=== PATIENT | male | born 1935 | race Two or more races ===

== ENCOUNTER 2018-04-24 14:14 | Inpatient (IN) | payer MEDICARE, OTHER ==
[~2018-04-24] VITALS: Ht 172.7 cm; Wt 74.8 kg
[2018-04-24] MEDS ORDERED: Z GUARD REMEDY PASTE 57 GM TUBE TOP PRN (15:45)
[2018-04-24] MEDS ORDERED: MAGNESIUM HYDROXIDE 30 ML LIQUID UDC PO PRN (15:45)
[2018-04-24] MEDS ORDERED: ACETAMINOPHEN 325 MG TABLET PO PRN (15:45)
[2018-04-24] MEDS ORDERED: ONDANSETRON 4 MG/2 ML VIAL IV PRN (15:45)
[2018-04-24] MEDS ORDERED: OXYC-128 PO (15:54)
[2018-04-24] MEDS ORDERED: NUT.237L36 PO (15:54)
[2018-04-24] MEDS ORDERED: POTA20TA83 PO (16:36)
[2018-04-24] MEDS ORDERED: TAMS0.4C34 PO (16:36)
[2018-04-24] MEDS ORDERED: ALOG25TA2 PO (16:36)
[2018-04-24] MEDS ORDERED: CAND1TAB16 PO (16:36)
[2018-04-24] MEDS ORDERED: ATOR10TA PO (16:36)
[2018-04-24] MEDS ORDERED: ASPI81TA31 PO (16:36)
[2018-04-24] MEDS ORDERED: ESOM40CA PO (16:36)
[2018-04-24] MEDS ORDERED: METF-440 PO (16:36)
[2018-04-24] MEDS ORDERED: RIVA10TA PO (16:36)
[2018-04-24] MEDS ORDERED: VALS80TA2 PO (16:36)
[2018-04-24] MEDS ORDERED: SILO8CAP2 PO (16:36)
[2018-04-24] MEDS ORDERED: PRED20TA PO (16:36)
[2018-04-24] MEDS ORDERED: DILT240C53 PO (16:36)
[2018-04-24] MEDS ORDERED: DEXTROSE 50% 50 ML DISP.SYRIN IV PRN (16:45)
[2018-04-24] MEDS ORDERED: OXYCODONE/APAP 5-325 MG TABLET PO PRN (18:30)
[2018-04-24 20:27] VITALS: BP 144/60
[2018-04-24] MEDS: ATORVASTATIN 10 MG TABLET PO SCH (20:37)
[2018-04-24] MEDS: TAMSULOSIN HCL 0.4 MG CAP.SR.24H PO SCH (20:37)
[2018-04-24] MEDS: DOCUSATE SODIUM 100 MG CAPSULE PO SCH (20:37)
[2018-04-24] MEDS: BLOOD SUGAR DIAGNOSTIC 1 EACH STRIP VI SCH (20:38)
[2018-04-24] MEDS: INSULIN REGULAR, HUMAN 300 UNIT/3 ML VIAL SQ PRN (20:41)
[2018-04-24] MEDS: DILTIAZEM HCL CD 240 MG CAP.SR.24H PO SCH (21:50)
[2018-04-25 06:05] VITALS: BP 135/62
[2018-04-25] MEDS: PANTOPRAZOLE SODIUM 40 MG TABLET.DR PO SCH (06:29)
[2018-04-25] MEDS: BLOOD SUGAR DIAGNOSTIC 1 EACH STRIP VI SCH ×4 (06:31→21:06)
[2018-04-25] MEDS ORDERED: PANTOPRAZOLE SODIUM 40 MG TABLET.DR PO SCH (07:00)
[2018-04-25 07:18] LABS: CARBON DIOXIDE 27 mmol/L (21-32); CHLORIDE 105 mmol/L (98-107); CHOLESTEROL 95 mg/dL (<200); CREATININE 1.1 mg/dL (0.6-1.3); GLUCOSE 173 mg/dL (74-106); HDL CHOLESTEROL 46 mg/dL (40-60); MAGNESIUM 2.1 mg/dL (1.8-2.4); PHOSPHOROUS 2.9 mg/dL (2.5-4.9); POTASSIUM 4.4 mmol/L (3.5-5.1); TRIGLYCERIDES 51 MG/DL (30-150); UREA NITROGEN, BLOOD 44 mg/dL (7-18)
[2018-04-25 07:27] LABS: BASOPHILS % (AUTO) 0.2 % (0.0-2.0); HEMATOCRIT 28.6 % (36.7-47.1); HEMOGLOBIN 9.9 g/dL (12.5-16.3); LYMPHOCYTES # (AUTO) 0.7 K/uL (20.0-40.0); LYMPHOCYTES % (AUTO) 4.7 % (20.5-51.5); MEAN CORPUSCULAR HGB CONC 35 g/dL (32.5-36.3); MEAN CORPUSCULAR VOLUME 98.4 fL (73.0-96.2); MONOCYTES # (AUTO) 1.4 K/uL (2.0-10.0); MONOCYTES % (AUTO) 9.9 % (0.0-11.0); NEUTROPHILS # (AUTO) 11.9 K/uL (1.8-8.9); NEUTROPHILS % (AUTO) 85.2 % (38.5-71.5); PLATELET COUNT (AUTO) 186 K/uL (152-348); RED BLOOD CELL COUNT(AUTO) 2.91 MIL/uL (4.06-5.63)
[2018-04-25 08:00] VITALS: BP 137/71
[2018-04-25] MEDS: METFORMIN HCL 500 MG TABLET PO SCH ×2 (08:38→19:04)
[2018-04-25] MEDS: ASPIRIN 81 MG TAB.CHEW PO SCH (08:38)
[2018-04-25] MEDS: GLUCERNA SHAKE VANILLA 237 ML CAN PO SCH ×2 (08:38→17:23)
[2018-04-25] MEDS: predniSONE 20 MG TABLET PO SCH (08:38)
[2018-04-25] MEDS: DILTIAZEM HCL CD 240 MG CAP.SR.24H PO SCH ×2 (08:39→21:00)
[2018-04-25] MEDS: HYDROCODONE/APAP 5-325MG TABLET PO PRN (08:49)
[2018-04-25] MEDS: INSULIN REGULAR, HUMAN 300 UNIT/3 ML VIAL SQ PRN ×3 (08:59→21:07)
[2018-04-25] MEDS ORDERED: Medication Not On Formulary EA (Silodosin (Rapaflo) 8 MG) PO SCH (09:00)
[2018-04-25] MEDS ORDERED: Medication Not On Formulary EA (Alogliptin Benzoate (Alogliptin) 25 MG) PO SCH (09:00)
[2018-04-25] MEDS ORDERED: RIVAROXABAN 10 MG TABLET PO SCH (09:00)
[2018-04-25 09:42] LABS: BAND % (MANUAL) 2 % (0-10); LYMPHOCYTES % (MANUAL) 6 % (20-40); MONOCYTES % (MANUAL) 12 % (2-10); NEUTROPHILS % (MANUAL) 80 % (42-75)
[2018-04-25] MEDS ORDERED: ALBUTEROL SULFATE 2.5 MG/ 0.5 ML NEBU NEB PRN (10:30)
[2018-04-25] MEDS: ALOGLIPTIN 25 MG PO SCH (14:47)
[2018-04-25] MEDS: HYDROCHLOROTHIAZIDE PO SCH ×2 (14:47→21:10)
[2018-04-25] MEDS: CANDESARTAN PO SCH ×2 (14:47→21:10)
[2018-04-25 16:00] VITALS: BP 128/50
[2018-04-25] MEDS ORDERED: Medication Not On Formulary EA (Candesartan/Hydrochlorothiazid (Candesartan-Hctz 32-12.5 PO SCH (17:00)
[2018-04-25] MEDS: RIVAROXABAN 10 MG TABLET PO SCH (19:08)
[2018-04-25 19:30] VITALS: BP 134/46
[2018-04-25] MEDS: DOCUSATE SODIUM 100 MG CAPSULE PO SCH (21:06)
[2018-04-25] MEDS: TAMSULOSIN HCL 0.4 MG CAP.SR.24H PO SCH (21:08)
[2018-04-25] MEDS: ATORVASTATIN 10 MG TABLET PO SCH (21:09)
[2018-04-25] MEDS: POTASSIUM CHLORIDE 20 MEQ TAB.PRT.SR PO SCH (21:09)
[2018-04-26 04:30] VITALS: BP 148/53
[2018-04-26] MEDS: BLOOD SUGAR DIAGNOSTIC 1 EACH STRIP VI SCH ×4 (06:41→21:04)
[2018-04-26] MEDS: PANTOPRAZOLE SODIUM 40 MG TABLET.DR PO SCH (06:41)
[2018-04-26 07:19] LABS: BASOPHILS % (AUTO) 0.1 % (0.0-2.0); EOSINOPHILS # (AUTO) 0.1 K/uL (0.0-0.7); EOSINOPHILS % (AUTO) 0.5 % (0.0-7.0); HEMATOCRIT 28.7 % (36.7-47.1); HEMOGLOBIN 9.9 g/dL (12.5-16.3); LYMPHOCYTES # (AUTO) 1.3 K/uL (20.0-40.0); LYMPHOCYTES % (AUTO) 8.7 % (20.5-51.5); MEAN CORPUSCULAR HEMOGLOBIN 33.1 uug (23.8-33.4); MEAN CORPUSCULAR HGB CONC 35 g/dL (32.5-36.3); MONOCYTES # (AUTO) 1.6 K/uL (2.0-10.0); MONOCYTES % (AUTO) 10.9 % (0.0-11.0); NEUTROPHILS # (AUTO) 11.8 K/uL (1.8-8.9); NEUTROPHILS % (AUTO) 79.8 % (38.5-71.5); PLATELET COUNT (AUTO) 219 K/uL (152-348); RED BLOOD CELL COUNT(AUTO) 2.99 MIL/uL (4.06-5.63); WHITE BLOOD COUNT (AUTO) 14.7 K/uL (3.6-10.2)
[2018-04-26 07:42] LABS: ALANINE AMINOTRANSFERASE 129 U/L (16-63); ALKALINE PHOSPHATASE 49 U/L (50-136); ASPARTATE AMINOTRANSFERASE 44 U/L (15-37); BILIRUBIN,TOTAL 0.3 mg/dL (0.2-1.0); CARBON DIOXIDE 30 mmol/L (21-32); CHLORIDE 103 mmol/L (98-107); GLUCOSE 133 mg/dL (74-106); POTASSIUM 4.3 mmol/L (3.5-5.1); TOTAL PROTEIN, SERUM 4.9 g/dL (6.4-8.2); UREA NITROGEN, BLOOD 40 mg/dL (7-18)
[2018-04-26] MEDS: INSULIN REGULAR, HUMAN 300 UNIT/3 ML VIAL SQ PRN ×4 (08:28→21:08)
[2018-04-26] MEDS: predniSONE 20 MG TABLET PO SCH (08:38)
[2018-04-26] MEDS: ASPIRIN 81 MG TAB.CHEW PO SCH (08:38)
[2018-04-26] MEDS: METFORMIN HCL 500 MG TABLET PO SCH ×2 (08:38→16:52)
[2018-04-26] MEDS: POTASSIUM CHLORIDE 20 MEQ TAB.PRT.SR PO SCH ×2 (08:38→20:59)
[2018-04-26] MEDS: HYDROCHLOROTHIAZIDE PO SCH ×2 (08:39→20:58)
[2018-04-26] MEDS: DILTIAZEM HCL CD 240 MG CAP.SR.24H PO SCH ×2 (08:39→21:00)
[2018-04-26] MEDS: CANDESARTAN PO SCH ×2 (08:39→20:58)
[2018-04-26] MEDS: ALOGLIPTIN 25 MG PO SCH (08:39)
[2018-04-26] MEDS: GLUCERNA SHAKE VANILLA 237 ML CAN PO SCH ×2 (08:46→16:59)
[2018-04-26] MEDS ORDERED: VALSARTAN 80 MG TABLET PO SCH (09:00)
[2018-04-26 09:03] VITALS: BP 137/56
[2018-04-26] MEDS: HYDROCODONE/APAP 5-325MG TABLET PO PRN (10:32)
[2018-04-26 13:40] LABS: BAND % (MANUAL) 2 % (0-10); LYMPHOCYTES % (MANUAL) 7 % (20-40); METAMYELOCYTES % 1 % (0-1); MONOCYTES % (MANUAL) 11 % (2-10); MYELOCYTES % 1 % (0-0); NEUTROPHILS % (MANUAL) 78 % (42-75)
[2018-04-26 15:49] VITALS: BP 124/54
[2018-04-26] MEDS: RIVAROXABAN 10 MG TABLET PO SCH (16:57)
[2018-04-26 19:30] VITALS: BP 132/72
[2018-04-26] MEDS: ATORVASTATIN 10 MG TABLET PO SCH (20:58)
[2018-04-26] MEDS: TAMSULOSIN HCL 0.4 MG CAP.SR.24H PO SCH (20:58)
[2018-04-26] MEDS: DOCUSATE SODIUM 100 MG CAPSULE PO SCH (20:58)
[2018-04-26] MEDS: ZOLPIDEM 5 MG TABLET PO PRN (23:12)
[2018-04-27 04:30] VITALS: BP 138/57
[2018-04-27] MEDS: PANTOPRAZOLE SODIUM 40 MG TABLET.DR PO SCH (06:44)
[2018-04-27] MEDS: BLOOD SUGAR DIAGNOSTIC 1 EACH STRIP VI SCH ×4 (06:44→21:26)
[2018-04-27 07:47] LABS: BASOPHILS % (AUTO) 0.1 % (0.0-2.0); EOSINOPHILS # (AUTO) 0.2 K/uL (0.0-0.7); EOSINOPHILS % (AUTO) 0.9 % (0.0-7.0); HEMATOCRIT 30.4 % (36.7-47.1); HEMOGLOBIN 10.5 g/dL (12.5-16.3); LYMPHOCYTES # (AUTO) 1.4 K/uL (20.0-40.0); LYMPHOCYTES % (AUTO) 8.1 % (20.5-51.5); MEAN CORPUSCULAR HEMOGLOBIN 33.7 uug (23.8-33.4); MEAN CORPUSCULAR HGB CONC 35 g/dL (32.5-36.3); MEAN CORPUSCULAR VOLUME 97.3 fL (73.0-96.2); MONOCYTES # (AUTO) 1.5 K/uL (2.0-10.0); MONOCYTES % (AUTO) 8.9 % (0.0-11.0); PLATELET COUNT (AUTO) 236 K/uL (152-348); RED BLOOD CELL COUNT(AUTO) 3.12 MIL/uL (4.06-5.63)
[2018-04-27 07:52] LABS: CARBON DIOXIDE 30 mmol/L (21-32); CHLORIDE 102 mmol/L (98-107); GLUCOSE 120 mg/dL (74-106); PHOSPHOROUS 2.9 mg/dL (2.5-4.9); POTASSIUM 4.1 mmol/L (3.5-5.1); UREA NITROGEN, BLOOD 40 mg/dL (7-18)
[2018-04-27 08:00] VITALS: BP 129/60
[2018-04-27] MEDS: ASPIRIN 81 MG TAB.CHEW PO SCH (08:45)
[2018-04-27] MEDS: predniSONE 20 MG TABLET PO SCH (08:45)
[2018-04-27] MEDS: CANDESARTAN PO SCH ×2 (08:46→21:16)
[2018-04-27] MEDS: METFORMIN HCL 500 MG TABLET PO SCH ×2 (08:46→17:25)
[2018-04-27] MEDS: POTASSIUM CHLORIDE 20 MEQ TAB.PRT.SR PO SCH ×2 (08:46→21:15)
[2018-04-27] MEDS: HYDROCHLOROTHIAZIDE PO SCH ×2 (08:46→21:16)
[2018-04-27] MEDS: DILTIAZEM HCL CD 240 MG CAP.SR.24H PO SCH ×2 (08:47→21:18)
[2018-04-27] MEDS: ALOGLIPTIN 25 MG PO SCH (08:47)
[2018-04-27] MEDS: GLUCERNA SHAKE VANILLA 237 ML CAN PO SCH ×2 (08:48→17:42)
[2018-04-27 09:11] LABS: NEUTROPHILS % (MANUAL) 75 % (42-75)
[2018-04-27 09:12] LABS: EOSINOPHILS % (MANUAL) 1 % (0-8); LYMPHOCYTES % (MANUAL) 11 % (20-40); METAMYELOCYTES % 2 % (0-1); MONOCYTES % (MANUAL) 6 % (2-10); MYELOCYTES % 5 % (0-0)
[2018-04-27] MEDS ORDERED: IV NS 1000 ML 1,000 ML IV ONE (12:00)
[2018-04-27] MEDS: INSULIN REGULAR, HUMAN 300 UNIT/3 ML VIAL SQ PRN ×3 (12:25→21:25)
[2018-04-27 17:18] VITALS: BP 94/49
[2018-04-27] MEDS: RIVAROXABAN 10 MG TABLET PO SCH (17:40)
[2018-04-27 18:09] LABS: *BILIRUBIN,URIN NEGATIVE (NEGATIVE); *BLOOD, URINE 2+ (NEGATIVE); *COLOR,URINE YELLOW (YELLOW); *KETONES,URINE NEGATIVE (NEGATIVE); *PROTEIN,URINE NEGATIVE (NEGATIVE); *UROBILINOGEN,URINE 0.2 E.U./dl (NORMAL); LEUKOCYTE ESTERASE ,URINE NEGATIVE (NEGATIVE); NITRITE, URINE NEGATIVE (NEGATIVE); PH,URINE 5.5 (5.0-8.0); UGLUCOSE NEGATIVE (NEGATIVE)
[2018-04-27 18:50] LABS: *CLARITY,URINE SLIGHTLY CLOUDY (CLEAR)
[2018-04-27 18:53] LABS: RBC,URINE 50-80 /HPF (0-3); WBC,URINE 0-3 /HPF (0-3)
[2018-04-27 18:54] LABS: MUCUS,URINE MANY /LPF (0-FEW); SQUAMOUS EPITHELIAL CELL,UR FEW /HPF (NONE SEEN); URIC ACID CRYSTALS,URINE MODERATE /HPF (NONE SEEN)
[2018-04-27 20:59] VITALS: BP 120/45
[2018-04-27] MEDS: DOCUSATE SODIUM 100 MG CAPSULE PO SCH (21:00)
[2018-04-27] MEDS: ATORVASTATIN 10 MG TABLET PO SCH (21:15)
[2018-04-27] MEDS: TAMSULOSIN HCL 0.4 MG CAP.SR.24H PO SCH (21:15)
[2018-04-28 04:50] VITALS: BP 114/48
[2018-04-28] MEDS: PANTOPRAZOLE SODIUM 40 MG TABLET.DR PO SCH (06:28)
[2018-04-28] MEDS: BLOOD SUGAR DIAGNOSTIC 1 EACH STRIP VI SCH ×4 (06:32→20:52)
[2018-04-28 07:45] LABS: BASOPHILS % (AUTO) 0.1 % (0.0-2.0); EOSINOPHILS # (AUTO) 0.2 K/uL (0.0-0.7); EOSINOPHILS % (AUTO) 0.9 % (0.0-7.0); HEMATOCRIT 28.8 % (36.7-47.1); HEMOGLOBIN 9.8 g/dL (12.5-16.3); LYMPHOCYTES # (AUTO) 1.2 K/uL (20.0-40.0); LYMPHOCYTES % (AUTO) 6.2 % (20.5-51.5); MEAN CORPUSCULAR HEMOGLOBIN 33.2 uug (23.8-33.4); MEAN CORPUSCULAR HGB CONC 34 g/dL (32.5-36.3); MEAN CORPUSCULAR VOLUME 97.7 fL (73.0-96.2); MONOCYTES % (AUTO) 10.3 % (0.0-11.0); NEUTROPHILS # (AUTO) 15.8 K/uL (1.8-8.9); NEUTROPHILS % (AUTO) 82.5 % (38.5-71.5); PLATELET COUNT (AUTO) 256 K/uL (152-348); RED BLOOD CELL COUNT(AUTO) 2.95 MIL/uL (4.06-5.63); WHITE BLOOD COUNT (AUTO) 19.1 K/uL (3.6-10.2)
[2018-04-28 07:56] LABS: CARBON DIOXIDE 27 mmol/L (21-32); CHLORIDE 101 mmol/L (98-107); GLUCOSE 120 mg/dL (74-106); MAGNESIUM 1.7 mg/dL (1.8-2.4); POTASSIUM 3.9 mmol/L (3.5-5.1); UREA NITROGEN, BLOOD 34 mg/dL (7-18)
[2018-04-28 08:00] VITALS: BP 128/55
[2018-04-28] MEDS: METFORMIN HCL 500 MG TABLET PO SCH ×2 (08:44→17:28)
[2018-04-28] MEDS: POTASSIUM CHLORIDE 20 MEQ TAB.PRT.SR PO SCH ×2 (08:44→20:43)
[2018-04-28] MEDS: ASPIRIN 81 MG TAB.CHEW PO SCH (08:45)
[2018-04-28] MEDS: predniSONE 20 MG TABLET PO SCH (08:46)
[2018-04-28] MEDS: DILTIAZEM HCL CD 240 MG CAP.SR.24H PO SCH ×2 (08:47→20:45)
[2018-04-28] MEDS: ALOGLIPTIN 25 MG PO SCH (08:47)
[2018-04-28] MEDS: HYDROCHLOROTHIAZIDE PO SCH ×2 (08:49→20:44)
[2018-04-28] MEDS: CANDESARTAN PO SCH ×2 (08:49→20:44)
[2018-04-28] MEDS: GLUCERNA SHAKE VANILLA 237 ML CAN PO SCH ×2 (08:50→16:43)
[2018-04-28] MEDS: HYDROCODONE/APAP 5-325MG TABLET PO PRN ×2 (08:53→14:01)
[2018-04-28] MEDS: INSULIN REGULAR, HUMAN 300 UNIT/3 ML VIAL SQ PRN ×3 (12:29→20:50)
[2018-04-28] MEDS ORDERED: MAGNESIUM OXIDE 400 MG TABLET PO ONE (14:15)
[2018-04-28 16:00] VITALS: BP 101/42
[2018-04-28] MEDS: RIVAROXABAN 10 MG TABLET PO SCH (17:34)
[2018-04-28 20:36] VITALS: BP 110/57
[2018-04-28] MEDS: DOCUSATE SODIUM 100 MG CAPSULE PO SCH (20:43)
[2018-04-28] MEDS: ATORVASTATIN 10 MG TABLET PO SCH (20:43)
[2018-04-28] MEDS: TAMSULOSIN HCL 0.4 MG CAP.SR.24H PO SCH (20:44)
[2018-04-28] MEDS: ZOLPIDEM 5 MG TABLET PO PRN (23:23)
[2018-04-29 05:39] VITALS: BP 126/74
[2018-04-29] MEDS: PANTOPRAZOLE SODIUM 40 MG TABLET.DR PO SCH (06:20)
[2018-04-29] MEDS: BLOOD SUGAR DIAGNOSTIC 1 EACH STRIP VI SCH ×4 (06:31→20:36)
[2018-04-29 07:23] LABS: BASOPHILS % (AUTO) 0.1 % (0.0-2.0); EOSINOPHILS # (AUTO) 0.2 K/uL (0.0-0.7); EOSINOPHILS % (AUTO) 0.8 % (0.0-7.0); HEMATOCRIT 28.6 % (36.7-47.1); LYMPHOCYTES # (AUTO) 1.5 K/uL (20.0-40.0); LYMPHOCYTES % (AUTO) 7.9 % (20.5-51.5); MEAN CORPUSCULAR HEMOGLOBIN 33.7 uug (23.8-33.4); MEAN CORPUSCULAR HGB CONC 35 g/dL (32.5-36.3); MEAN CORPUSCULAR VOLUME 96.7 fL (73.0-96.2); MONOCYTES # (AUTO) 1.7 K/uL (2.0-10.0); MONOCYTES % (AUTO) 8.5 % (0.0-11.0); NEUTROPHILS # (AUTO) 16.2 K/uL (1.8-8.9); NEUTROPHILS % (AUTO) 82.7 % (38.5-71.5); PLATELET COUNT (AUTO) 271 K/uL (152-348); RED BLOOD CELL COUNT(AUTO) 2.96 MIL/uL (4.06-5.63); WHITE BLOOD COUNT (AUTO) 19.6 K/uL (3.6-10.2)
[2018-04-29 07:53] LABS: CARBON DIOXIDE 31 mmol/L (21-32); CHLORIDE 100 mmol/L (98-107); CREATININE 1.1 mg/dL (0.6-1.3); GLUCOSE 104 mg/dL (74-106); MAGNESIUM 1.8 mg/dL (1.8-2.4); POTASSIUM 4.1 mmol/L (3.5-5.1); UREA NITROGEN, BLOOD 32 mg/dL (7-18)
[2018-04-29] MEDS: POTASSIUM CHLORIDE 20 MEQ TAB.PRT.SR PO SCH ×2 (08:25→20:35)
[2018-04-29] MEDS: ASPIRIN 81 MG TAB.CHEW PO SCH (08:25)
[2018-04-29] MEDS: predniSONE 20 MG TABLET PO SCH (08:26)
[2018-04-29] MEDS: METFORMIN HCL 500 MG TABLET PO SCH ×2 (08:26→17:03)
[2018-04-29] MEDS: ALOGLIPTIN 25 MG PO SCH (08:27)
[2018-04-29] MEDS: HYDROCHLOROTHIAZIDE PO SCH ×2 (08:27→20:35)
[2018-04-29] MEDS: CANDESARTAN PO SCH ×2 (08:27→20:35)
[2018-04-29] MEDS: DILTIAZEM HCL CD 240 MG CAP.SR.24H PO SCH ×2 (08:28→20:37)
[2018-04-29 08:30] VITALS: BP 114/56
[2018-04-29] MEDS: GLUCERNA SHAKE VANILLA 237 ML CAN PO SCH ×2 (08:30→17:05)
[2018-04-29 09:13] LABS: LYMPHOCYTES % (MANUAL) 8 % (20-40); METAMYELOCYTES % 1 % (0-1); MONOCYTES % (MANUAL) 9 % (2-10); MYELOCYTES % 2 % (0-0); NEUTROPHILS % (MANUAL) 80 % (42-75)
[2018-04-29] MEDS: INSULIN REGULAR, HUMAN 300 UNIT/3 ML VIAL SQ PRN ×2 (12:12→20:45)
[2018-04-29] MEDS: HYDROCODONE/APAP 5-325MG TABLET PO PRN (14:16)
[2018-04-29] MEDS: RIVAROXABAN 10 MG TABLET PO SCH (17:07)
[2018-04-29 17:55] VITALS: BP 96/52
[2018-04-29 19:49] VITALS: BP 112/55
[2018-04-29] MEDS: TAMSULOSIN HCL 0.4 MG CAP.SR.24H PO SCH (20:35)
[2018-04-29] MEDS: ATORVASTATIN 10 MG TABLET PO SCH (20:35)
[2018-04-29] MEDS: DOCUSATE SODIUM 100 MG CAPSULE PO SCH (20:35)
[2018-04-30] MEDS: ZOLPIDEM 5 MG TABLET PO PRN (00:12)
[2018-04-30] MEDS: PANTOPRAZOLE SODIUM 40 MG TABLET.DR PO SCH (06:31)
[2018-04-30] MEDS: BLOOD SUGAR DIAGNOSTIC 1 EACH STRIP VI SCH ×4 (06:34→21:10)
[2018-04-30 07:00] VITALS: BP 125/62
[2018-04-30 07:30] VITALS: BP 130/60
[2018-04-30 07:39] LABS: BASOPHILS % (AUTO) 0.1 % (0.0-2.0); EOSINOPHILS # (AUTO) 0.1 K/uL (0.0-0.7); EOSINOPHILS % (AUTO) 0.7 % (0.0-7.0); HEMATOCRIT 26.1 % (36.7-47.1); LYMPHOCYTES # (AUTO) 1.6 K/uL (20.0-40.0); MEAN CORPUSCULAR HEMOGLOBIN 33.4 uug (23.8-33.4); MEAN CORPUSCULAR HGB CONC 35 g/dL (32.5-36.3); MEAN CORPUSCULAR VOLUME 96.6 fL (73.0-96.2); MONOCYTES # (AUTO) 1.8 K/uL (2.0-10.0); MONOCYTES % (AUTO) 8.9 % (0.0-11.0); NEUTROPHILS # (AUTO) 16.7 K/uL (1.8-8.9); NEUTROPHILS % (AUTO) 82.3 % (38.5-71.5); PLATELET COUNT (AUTO) 294 K/uL (152-348); WHITE BLOOD COUNT (AUTO) 20.2 K/uL (3.6-10.2)
[2018-04-30] MEDS: METFORMIN HCL 500 MG TABLET PO SCH ×2 (08:18→17:05)
[2018-04-30] MEDS: POTASSIUM CHLORIDE 20 MEQ TAB.PRT.SR PO SCH ×2 (08:18→21:12)
[2018-04-30] MEDS: HYDROCODONE/APAP 5-325MG TABLET PO PRN (08:19)
[2018-04-30] MEDS: predniSONE 20 MG TABLET PO SCH (08:19)
[2018-04-30] MEDS: ASPIRIN 81 MG TAB.CHEW PO SCH (08:19)
[2018-04-30] MEDS: DILTIAZEM HCL CD 240 MG CAP.SR.24H PO SCH ×2 (08:19→21:12)
[2018-04-30] MEDS: GLUCERNA SHAKE VANILLA 237 ML CAN PO SCH ×2 (08:27→16:58)
[2018-04-30] MEDS: CANDESARTAN PO SCH ×2 (09:11→21:13)
[2018-04-30] MEDS: HYDROCHLOROTHIAZIDE PO SCH ×2 (09:11→21:13)
[2018-04-30] MEDS: ALOGLIPTIN 25 MG PO SCH (09:11)
[2018-04-30 09:38] LABS: EOSINOPHILS % (MANUAL) 1 % (0-8); LYMPHOCYTES % (MANUAL) 5 % (20-40); METAMYELOCYTES % 5 % (0-1); MONOCYTES % (MANUAL) 6 % (2-10); MYELOCYTES % 4 % (0-0); NEUTROPHILS % (MANUAL) 79 % (42-75)
[2018-04-30] MEDS: INSULIN REGULAR, HUMAN 300 UNIT/3 ML VIAL SQ PRN ×3 (12:19→21:17)
[2018-04-30 15:20] VITALS: BP 99/44
[2018-04-30] MEDS: RIVAROXABAN 10 MG TABLET PO SCH (17:04)
[2018-04-30 20:09] VITALS: BP 140/70
[2018-04-30] MEDS: DOCUSATE SODIUM 100 MG CAPSULE PO SCH (21:11)
[2018-04-30] MEDS: ATORVASTATIN 10 MG TABLET PO SCH (21:11)
[2018-04-30] MEDS: TAMSULOSIN HCL 0.4 MG CAP.SR.24H PO SCH (21:12)
[2018-05-01] MEDS: ZOLPIDEM 5 MG TABLET PO PRN ×2 (01:15→23:57)
[2018-05-01 05:43] VITALS: BP 132/57
[2018-05-01] MEDS: PANTOPRAZOLE SODIUM 40 MG TABLET.DR PO SCH (06:03)
[2018-05-01] MEDS: BLOOD SUGAR DIAGNOSTIC 1 EACH STRIP VI SCH ×4 (06:33→20:56)
[2018-05-01 07:00] VITALS: BP 138/82
[2018-05-01 07:55] LABS: BASOPHILS % (AUTO) 0.1 % (0.0-2.0); EOSINOPHILS # (AUTO) 0.1 K/uL (0.0-0.7); EOSINOPHILS % (AUTO) 0.5 % (0.0-7.0); LYMPHOCYTES # (AUTO) 1.8 K/uL (20.0-40.0); LYMPHOCYTES % (AUTO) 8.2 % (20.5-51.5); MEAN CORPUSCULAR HEMOGLOBIN 33.5 uug (23.8-33.4); MEAN CORPUSCULAR HGB CONC 34 g/dL (32.5-36.3); MEAN CORPUSCULAR VOLUME 97.2 fL (73.0-96.2); MONOCYTES # (AUTO) 1.8 K/uL (2.0-10.0); MONOCYTES % (AUTO) 8.4 % (0.0-11.0); NEUTROPHILS # (AUTO) 17.9 K/uL (1.8-8.9); NEUTROPHILS % (AUTO) 82.8 % (38.5-71.5); PLATELET COUNT (AUTO) 339 K/uL (152-348); RED BLOOD CELL COUNT(AUTO) 3.07 MIL/uL (4.06-5.63); WHITE BLOOD COUNT (AUTO) 21.6 K/uL (3.6-10.2)
[2018-05-01 07:56] LABS: HEMOGLOBIN 10.3 g/dL (12.5-16.3)
[2018-05-01 07:57] LABS: HEMATOCRIT 29.8 % (36.7-47.1)
[2018-05-01 08:15] LABS: CARBON DIOXIDE 28 mmol/L (21-32); CHLORIDE 100 mmol/L (98-107); GLUCOSE 110 mg/dL (74-106); MAGNESIUM 1.6 mg/dL (1.8-2.4); PHOSPHOROUS 2.4 mg/dL (2.5-4.9); POTASSIUM 4.1 mmol/L (3.5-5.1); UREA NITROGEN, BLOOD 25 mg/dL (7-18)
[2018-05-01] MEDS: METFORMIN HCL 500 MG TABLET PO SCH ×2 (08:26→17:14)
[2018-05-01] MEDS: ASPIRIN 81 MG TAB.CHEW PO SCH (08:26)
[2018-05-01] MEDS: predniSONE 20 MG TABLET PO SCH (08:26)
[2018-05-01] MEDS: DILTIAZEM HCL CD 240 MG CAP.SR.24H PO SCH ×2 (08:26→20:44)
[2018-05-01] MEDS: POTASSIUM CHLORIDE 20 MEQ TAB.PRT.SR PO SCH ×2 (08:26→20:43)
[2018-05-01] MEDS: ALOGLIPTIN 25 MG PO SCH (08:27)
[2018-05-01] MEDS: HYDROCHLOROTHIAZIDE PO SCH ×2 (08:27→20:43)
[2018-05-01] MEDS: GLUCERNA SHAKE VANILLA 237 ML CAN PO SCH ×2 (08:27→17:20)
[2018-05-01] MEDS: CANDESARTAN PO SCH ×2 (08:27→20:43)
[2018-05-01] MEDS ORDERED: NEUTRA PHOS PACKET PO ONE (09:00)
[2018-05-01 09:10] LABS: EOSINOPHILS % (MANUAL) 1 % (0-8); LYMPHOCYTES % (MANUAL) 8 % (20-40); METAMYELOCYTES % 3 % (0-1); MONOCYTES % (MANUAL) 8 % (2-10); MYELOCYTES % 16 % (0-0); NEUTROPHILS % (MANUAL) 64 % (42-75)
[2018-05-01] MEDS: MAGNESIUM SULFATE/D5W 100 ML IV SCH ×2 (09:50→11:00)
[2018-05-01] MEDS: HYDROCODONE/APAP 5-325MG TABLET PO PRN (10:56)
[2018-05-01] MEDS ORDERED: MAGNESIUM SULFATE/D5W 100 ML IV SCH (11:30)
[2018-05-01 16:03] VITALS: BP 105/35
[2018-05-01] MEDS: RIVAROXABAN 10 MG TABLET PO SCH (17:14)
[2018-05-01] MEDS: INSULIN REGULAR, HUMAN 300 UNIT/3 ML VIAL SQ PRN ×2 (17:16→21:05)
[2018-05-01] MEDS: DOCUSATE SODIUM 100 MG CAPSULE PO SCH (20:43)
[2018-05-01] MEDS: ATORVASTATIN 10 MG TABLET PO SCH (20:43)
[2018-05-01] MEDS: TAMSULOSIN HCL 0.4 MG CAP.SR.24H PO SCH (20:44)
[2018-05-01 21:21] VITALS: BP 120/47
[2018-05-02 04:30] VITALS: BP 124/51
[2018-05-02] MEDS: PANTOPRAZOLE SODIUM 40 MG TABLET.DR PO SCH (06:37)
[2018-05-02] MEDS: BLOOD SUGAR DIAGNOSTIC 1 EACH STRIP VI SCH ×4 (06:42→21:08)
[2018-05-02 07:49] LABS: BASOPHILS % (AUTO) 0.1 % (0.0-2.0); EOSINOPHILS # (AUTO) 0.1 K/uL (0.0-0.7); EOSINOPHILS % (AUTO) 0.3 % (0.0-7.0); HEMATOCRIT 28.4 % (36.7-47.1); HEMOGLOBIN 9.8 g/dL (12.5-16.3); LYMPHOCYTES % (AUTO) 8.8 % (20.5-51.5); MEAN CORPUSCULAR HEMOGLOBIN 33.5 uug (23.8-33.4); MEAN CORPUSCULAR HGB CONC 34 g/dL (32.5-36.3); MEAN CORPUSCULAR VOLUME 97.3 fL (73.0-96.2); MONOCYTES # (AUTO) 1.6 K/uL (2.0-10.0); MONOCYTES % (AUTO) 7.2 % (0.0-11.0); NEUTROPHILS # (AUTO) 18.8 K/uL (1.8-8.9); NEUTROPHILS % (AUTO) 83.6 % (38.5-71.5); PLATELET COUNT (AUTO) 338 K/uL (152-348); RED BLOOD CELL COUNT(AUTO) 2.92 MIL/uL (4.06-5.63); WHITE BLOOD COUNT (AUTO) 22.5 K/uL (3.6-10.2)
[2018-05-02 07:56] LABS: CARBON DIOXIDE 31 mmol/L (21-32); CHLORIDE 100 mmol/L (98-107); CREATININE 1.1 mg/dL (0.6-1.3); GLUCOSE 127 mg/dL (74-106); POTASSIUM 4.5 mmol/L (3.5-5.1)
[2018-05-02 08:13] LABS: UREA NITROGEN, BLOOD 23 mg/dL (7-18)
[2018-05-02] MEDS: GLUCERNA SHAKE VANILLA 237 ML CAN PO SCH ×2 (08:46→16:55)
[2018-05-02] MEDS: ASPIRIN 81 MG TAB.CHEW PO SCH (08:47)
[2018-05-02] MEDS: METFORMIN HCL 500 MG TABLET PO SCH ×2 (08:47→17:03)
[2018-05-02] MEDS: predniSONE 20 MG TABLET PO SCH (08:47)
[2018-05-02] MEDS: ALOGLIPTIN 25 MG PO SCH (08:47)
[2018-05-02] MEDS: POTASSIUM CHLORIDE 20 MEQ TAB.PRT.SR PO SCH ×2 (08:47→21:01)
[2018-05-02] MEDS: CANDESARTAN PO SCH ×2 (08:48→21:03)
[2018-05-02] MEDS: HYDROCHLOROTHIAZIDE PO SCH ×2 (08:48→21:03)
[2018-05-02] MEDS: DILTIAZEM HCL CD 240 MG CAP.SR.24H PO SCH ×2 (08:48→21:02)
[2018-05-02 08:52] VITALS: BP 103/45
[2018-05-02] MEDS: INSULIN REGULAR, HUMAN 300 UNIT/3 ML VIAL SQ PRN ×3 (12:10→21:12)
[2018-05-02 16:00] VITALS: BP 119/53
[2018-05-02] MEDS: RIVAROXABAN 10 MG TABLET PO SCH (17:02)
[2018-05-02 19:37] VITALS: BP 132/51
[2018-05-02] MEDS: TAMSULOSIN HCL 0.4 MG CAP.SR.24H PO SCH (21:01)
[2018-05-02] MEDS: ATORVASTATIN 10 MG TABLET PO SCH (21:01)
[2018-05-02] MEDS: DOCUSATE SODIUM 100 MG CAPSULE PO SCH (21:01)
[2018-05-02] MEDS: ZOLPIDEM 5 MG TABLET PO PRN (22:10)
[2018-05-03 04:25] VITALS: BP 125/57
[2018-05-03] MEDS: PANTOPRAZOLE SODIUM 40 MG TABLET.DR PO SCH (06:32)
[2018-05-03] MEDS: BLOOD SUGAR DIAGNOSTIC 1 EACH STRIP VI SCH ×4 (06:34→20:47)
[2018-05-03 08:00] VITALS: BP 122/57
[2018-05-03 08:24] LABS: BASOPHILS % (AUTO) 0.1 % (0.0-2.0); EOSINOPHILS # (AUTO) 0.1 K/uL (0.0-0.7); EOSINOPHILS % (AUTO) 0.4 % (0.0-7.0); HEMATOCRIT 31.8 % (36.7-47.1); HEMOGLOBIN 10.7 g/dL (12.5-16.3); LYMPHOCYTES # (AUTO) 2.5 K/uL (20.0-40.0); LYMPHOCYTES % (AUTO) 9.9 % (20.5-51.5); MEAN CORPUSCULAR HEMOGLOBIN 32.8 uug (23.8-33.4); MEAN CORPUSCULAR HGB CONC 34 g/dL (32.5-36.3); MEAN CORPUSCULAR VOLUME 97.4 fL (73.0-96.2); MONOCYTES # (AUTO) 1.9 K/uL (2.0-10.0); MONOCYTES % (AUTO) 7.2 % (0.0-11.0); NEUTROPHILS # (AUTO) 21.2 K/uL (1.8-8.9); NEUTROPHILS % (AUTO) 82.4 % (38.5-71.5); PLATELET COUNT (AUTO) 404 K/uL (152-348); RED BLOOD CELL COUNT(AUTO) 3.26 MIL/uL (4.06-5.63); WHITE BLOOD COUNT (AUTO) 25.7 K/uL (3.6-10.2)
[2018-05-03] MEDS: POTASSIUM CHLORIDE 20 MEQ TAB.PRT.SR PO SCH ×2 (08:51→20:43)
[2018-05-03] MEDS: METFORMIN HCL 500 MG TABLET PO SCH ×2 (08:51→17:08)
[2018-05-03] MEDS: HYDROCODONE/APAP 5-325MG TABLET PO PRN (08:51)
[2018-05-03] MEDS: predniSONE 20 MG TABLET PO SCH (08:51)
[2018-05-03] MEDS: ASPIRIN 81 MG TAB.CHEW PO SCH (08:51)
[2018-05-03] MEDS: ALOGLIPTIN 25 MG PO SCH (08:53)
[2018-05-03] MEDS: CANDESARTAN PO SCH ×2 (08:54→20:43)
[2018-05-03] MEDS: DILTIAZEM HCL CD 240 MG CAP.SR.24H PO SCH ×2 (08:54→20:45)
[2018-05-03] MEDS: HYDROCHLOROTHIAZIDE PO SCH ×2 (08:54→20:43)
[2018-05-03] MEDS: GLUCERNA SHAKE VANILLA 237 ML CAN PO SCH ×2 (08:55→17:12)
[2018-05-03 09:50] LABS: BAND % (MANUAL) 1 % (0-10); LYMPHOCYTES % (MANUAL) 11 % (20-40); METAMYELOCYTES % 4 % (0-1); MONOCYTES % (MANUAL) 9 % (2-10); MYELOCYTES % 3 % (0-0); NEUTROPHILS % (MANUAL) 72 % (42-75)
[2018-05-03] MEDS: INSULIN REGULAR, HUMAN 300 UNIT/3 ML VIAL SQ PRN ×3 (12:09→20:54)
[2018-05-03 16:00] VITALS: BP 99/50
[2018-05-03] MEDS: RIVAROXABAN 10 MG TABLET PO SCH (17:11)
[2018-05-03 20:28] VITALS: BP 115/55
[2018-05-03] MEDS: ATORVASTATIN 10 MG TABLET PO SCH (20:43)
[2018-05-03] MEDS: TAMSULOSIN HCL 0.4 MG CAP.SR.24H PO SCH (20:43)
[2018-05-03] MEDS: DOCUSATE SODIUM 100 MG CAPSULE PO SCH (20:43)
[2018-05-03] MEDS: ZOLPIDEM 5 MG TABLET PO PRN (23:11)
[2018-05-04 05:01] VITALS: BP 130/61
[2018-05-04] MEDS: PANTOPRAZOLE SODIUM 40 MG TABLET.DR PO SCH (06:10)
[2018-05-04] MEDS: BLOOD SUGAR DIAGNOSTIC 1 EACH STRIP VI SCH ×4 (06:14→20:31)
[2018-05-04 07:34] LABS: BASOPHILS % (AUTO) 0.1 % (0.0-2.0); EOSINOPHILS # (AUTO) 0.1 K/uL (0.0-0.7); EOSINOPHILS % (AUTO) 0.3 % (0.0-7.0); HEMATOCRIT 28.9 % (36.7-47.1); HEMOGLOBIN 9.8 g/dL (12.5-16.3); LYMPHOCYTES # (AUTO) 2.4 K/uL (20.0-40.0); LYMPHOCYTES % (AUTO) 9.5 % (20.5-51.5); MEAN CORPUSCULAR HEMOGLOBIN 33.5 uug (23.8-33.4); MEAN CORPUSCULAR HGB CONC 34 g/dL (32.5-36.3); MEAN CORPUSCULAR VOLUME 98.4 fL (73.0-96.2); MONOCYTES # (AUTO) 1.8 K/uL (2.0-10.0); MONOCYTES % (AUTO) 7.3 % (0.0-11.0); NEUTROPHILS # (AUTO) 20.7 K/uL (1.8-8.9); NEUTROPHILS % (AUTO) 82.8 % (38.5-71.5); PLATELET COUNT (AUTO) 365 K/uL (152-348); RED BLOOD CELL COUNT(AUTO) 2.94 MIL/uL (4.06-5.63)
[2018-05-04 07:59] LABS: CARBON DIOXIDE 31 mmol/L (21-32); CHLORIDE 100 mmol/L (98-107); CREATININE 1.2 mg/dL (0.6-1.3); GLUCOSE 102 mg/dL (74-106); POTASSIUM 4.6 mmol/L (3.5-5.1); UREA NITROGEN, BLOOD 22 mg/dL (7-18)
[2018-05-04 08:00] VITALS: BP 131/64
[2018-05-04] MEDS: METFORMIN HCL 500 MG TABLET PO SCH ×2 (08:31→17:26)
[2018-05-04] MEDS: ALOGLIPTIN 25 MG PO SCH (08:31)
[2018-05-04] MEDS: POTASSIUM CHLORIDE 20 MEQ TAB.PRT.SR PO SCH ×2 (08:31→20:28)
[2018-05-04] MEDS: HYDROCHLOROTHIAZIDE PO SCH ×2 (08:31→20:29)
[2018-05-04] MEDS: CANDESARTAN PO SCH ×2 (08:31→20:29)
[2018-05-04] MEDS: predniSONE 20 MG TABLET PO SCH (08:31)
[2018-05-04] MEDS: ASPIRIN 81 MG TAB.CHEW PO SCH (08:31)
[2018-05-04] MEDS: DILTIAZEM HCL CD 240 MG CAP.SR.24H PO SCH ×2 (08:32→20:30)
[2018-05-04] MEDS: GLUCERNA SHAKE VANILLA 237 ML CAN PO SCH ×2 (08:33→17:26)
[2018-05-04] MEDS: HYDROCODONE/APAP 5-325MG TABLET PO PRN (10:21)
[2018-05-04 10:30] LABS: BAND % (MANUAL) 1 % (0-10); EOSINOPHILS % (MANUAL) 1 % (0-8); LYMPHOCYTES % (MANUAL) 10 % (20-40); METAMYELOCYTES % 3 % (0-1); MONOCYTES % (MANUAL) 2 % (2-10); MYELOCYTES % 1 % (0-0); NEUTROPHILS % (MANUAL) 82 % (42-75)
[2018-05-04] MEDS: INSULIN REGULAR, HUMAN 300 UNIT/3 ML VIAL SQ PRN ×3 (11:52→20:35)
[2018-05-04 16:24] VITALS: BP 87/43
[2018-05-04] MEDS: RIVAROXABAN 10 MG TABLET PO SCH (17:29)
[2018-05-04] MEDS: ATORVASTATIN 10 MG TABLET PO SCH (20:28)
[2018-05-04] MEDS: TAMSULOSIN HCL 0.4 MG CAP.SR.24H PO SCH (20:28)
[2018-05-04] MEDS: DOCUSATE SODIUM 100 MG CAPSULE PO SCH (20:28)
[2018-05-04 20:50] VITALS: BP 104/53
[2018-05-04] MEDS: TEMAZEPAM 15 MG CAPSULE PO PRN (23:09)
[2018-05-05 04:58] VITALS: BP 123/60
[2018-05-05] MEDS: PANTOPRAZOLE SODIUM 40 MG TABLET.DR PO SCH (06:10)
[2018-05-05] MEDS: BLOOD SUGAR DIAGNOSTIC 1 EACH STRIP VI SCH ×4 (06:35→21:19)
[2018-05-05 07:30] LABS: BASOPHILS % (AUTO) 0.1 % (0.0-2.0); EOSINOPHILS # (AUTO) 0.1 K/uL (0.0-0.7); EOSINOPHILS % (AUTO) 0.4 % (0.0-7.0); HEMOGLOBIN 9.3 g/dL (12.5-16.3); LYMPHOCYTES # (AUTO) 2.1 K/uL (20.0-40.0); LYMPHOCYTES % (AUTO) 9.8 % (20.5-51.5); MEAN CORPUSCULAR HEMOGLOBIN 33.9 uug (23.8-33.4); MEAN CORPUSCULAR HGB CONC 34 g/dL (32.5-36.3); MEAN CORPUSCULAR VOLUME 98.9 fL (73.0-96.2); MONOCYTES # (AUTO) 1.5 K/uL (2.0-10.0); MONOCYTES % (AUTO) 7.2 % (0.0-11.0); NEUTROPHILS # (AUTO) 17.4 K/uL (1.8-8.9); NEUTROPHILS % (AUTO) 82.5 % (38.5-71.5); PLATELET COUNT (AUTO) 354 K/uL (152-348); RED BLOOD CELL COUNT(AUTO) 2.73 MIL/uL (4.06-5.63); WHITE BLOOD COUNT (AUTO) 21.1 K/uL (3.6-10.2)
[2018-05-05 07:42] LABS: CARBON DIOXIDE 30 mmol/L (21-32); CHLORIDE 102 mmol/L (98-107); CREATININE 1.2 mg/dL (0.6-1.3); GLUCOSE 117 mg/dL (74-106); POTASSIUM 4.3 mmol/L (3.5-5.1); UREA NITROGEN, BLOOD 26 mg/dL (7-18)
[2018-05-05 08:00] VITALS: BP 118/63
[2018-05-05] MEDS: METFORMIN HCL 500 MG TABLET PO SCH ×2 (08:24→17:08)
[2018-05-05] MEDS: ASPIRIN 81 MG TAB.CHEW PO SCH (08:24)
[2018-05-05] MEDS: POTASSIUM CHLORIDE 20 MEQ TAB.PRT.SR PO SCH ×2 (08:24→20:55)
[2018-05-05] MEDS: ALOGLIPTIN 25 MG PO SCH (08:25)
[2018-05-05] MEDS: DILTIAZEM HCL CD 240 MG CAP.SR.24H PO SCH ×2 (08:25→20:56)
[2018-05-05] MEDS: GLUCERNA SHAKE VANILLA 237 ML CAN PO SCH ×2 (08:30→17:07)
[2018-05-05 09:26] LABS: LYMPHOCYTES % (MANUAL) 14 % (20-40); METAMYELOCYTES % 2 % (0-1); MONOCYTES % (MANUAL) 2 % (2-10); NEUTROPHILS % (MANUAL) 81 % (42-75)
[2018-05-05 09:27] LABS: MYELOCYTES % 1 % (0-0)
[2018-05-05] MEDS: CANDESARTAN PO SCH ×2 (10:00→20:54)
[2018-05-05] MEDS: HYDROCHLOROTHIAZIDE PO SCH ×2 (10:00→20:54)
[2018-05-05] MEDS: predniSONE 10 MG TABLET PO SCH (10:05)
[2018-05-05 16:00] VITALS: BP 106/46
[2018-05-05] MEDS: RIVAROXABAN 10 MG TABLET PO SCH (17:09)
[2018-05-05] MEDS: INSULIN REGULAR, HUMAN 300 UNIT/3 ML VIAL SQ PRN (17:10)
[2018-05-05 20:18] VITALS: BP 103/59
[2018-05-05] MEDS: ATORVASTATIN 10 MG TABLET PO SCH (20:55)
[2018-05-05] MEDS: DOCUSATE SODIUM 100 MG CAPSULE PO SCH (20:55)
[2018-05-05] MEDS: TAMSULOSIN HCL 0.4 MG CAP.SR.24H PO SCH (20:55)
[2018-05-05] MEDS: TEMAZEPAM 15 MG CAPSULE PO PRN (23:28)
[2018-05-06 05:43] VITALS: BP 107/55
[2018-05-06] MEDS: BLOOD SUGAR DIAGNOSTIC 1 EACH STRIP VI SCH ×4 (06:50→21:21)
[2018-05-06] MEDS: PANTOPRAZOLE SODIUM 40 MG TABLET.DR PO SCH (06:50)
[2018-05-06 07:31] LABS: BASOPHILS % (AUTO) 0.2 % (0.0-2.0); EOSINOPHILS # (AUTO) 0.1 K/uL (0.0-0.7); EOSINOPHILS % (AUTO) 0.7 % (0.0-7.0); HEMATOCRIT 28.5 % (36.7-47.1); HEMOGLOBIN 9.6 g/dL (12.5-16.3); LYMPHOCYTES # (AUTO) 1.8 K/uL (20.0-40.0); MEAN CORPUSCULAR HEMOGLOBIN 33.3 uug (23.8-33.4); MEAN CORPUSCULAR HGB CONC 34 g/dL (32.5-36.3); MEAN CORPUSCULAR VOLUME 98.9 fL (73.0-96.2); MONOCYTES # (AUTO) 1.8 K/uL (2.0-10.0); MONOCYTES % (AUTO) 9.9 % (0.0-11.0); NEUTROPHILS # (AUTO) 14.4 K/uL (1.8-8.9); NEUTROPHILS % (AUTO) 79.2 % (38.5-71.5); PLATELET COUNT (AUTO) 346 K/uL (152-348); RED BLOOD CELL COUNT(AUTO) 2.88 MIL/uL (4.06-5.63); WHITE BLOOD COUNT (AUTO) 18.2 K/uL (3.6-10.2)
[2018-05-06 07:47] LABS: CARBON DIOXIDE 31 mmol/L (21-32); CHLORIDE 103 mmol/L (98-107); CREATININE 1.2 mg/dL (0.6-1.3); GLUCOSE 107 mg/dL (74-106); MAGNESIUM 1.5 mg/dL (1.8-2.4); PHOSPHOROUS 3.2 mg/dL (2.5-4.9); POTASSIUM 4.6 mmol/L (3.5-5.1); UREA NITROGEN, BLOOD 26 mg/dL (7-18)
[2018-05-06 07:59] LABS: LYMPHOCYTES % (MANUAL) 10 % (20-40); MONOCYTES % (MANUAL) 5 % (2-10); NEUTROPHILS % (MANUAL) 85 % (42-75)
[2018-05-06 08:19] VITALS: BP 118/55
[2018-05-06] MEDS: METFORMIN HCL 500 MG TABLET PO SCH ×2 (08:25→17:05)
[2018-05-06] MEDS: POTASSIUM CHLORIDE 20 MEQ TAB.PRT.SR PO SCH ×2 (08:25→21:22)
[2018-05-06] MEDS: ASPIRIN 81 MG TAB.CHEW PO SCH (08:25)
[2018-05-06] MEDS: predniSONE 10 MG TABLET PO SCH (08:27)
[2018-05-06] MEDS: GLUCERNA SHAKE VANILLA 237 ML CAN PO SCH ×2 (08:28→17:04)
[2018-05-06] MEDS: HYDROCODONE/APAP 5-325MG TABLET PO PRN (08:39)
[2018-05-06] MEDS: HYDROCHLOROTHIAZIDE PO SCH ×2 (09:00→21:22)
[2018-05-06] MEDS: CANDESARTAN PO SCH ×2 (09:00→21:22)
[2018-05-06] MEDS: DILTIAZEM HCL CD 240 MG CAP.SR.24H PO SCH ×2 (09:00→21:23)
[2018-05-06] MEDS: ALOGLIPTIN 25 MG PO SCH (10:31)
[2018-05-06] MEDS: INSULIN REGULAR, HUMAN 300 UNIT/3 ML VIAL SQ PRN ×3 (14:23→21:26)
[2018-05-06] MEDS ORDERED: MAGNESIUM OXIDE 400 MG TABLET PO ONE (15:00)
[2018-05-06 16:30] VITALS: BP 100/58
[2018-05-06] MEDS: RIVAROXABAN 10 MG TABLET PO SCH (17:07)
[2018-05-06 20:00] VITALS: BP 132/56
[2018-05-06] MEDS: DOCUSATE SODIUM 100 MG CAPSULE PO SCH (21:21)
[2018-05-06] MEDS: TAMSULOSIN HCL 0.4 MG CAP.SR.24H PO SCH (21:22)
[2018-05-06] MEDS: ATORVASTATIN 10 MG TABLET PO SCH (21:22)
[2018-05-07 05:38] VITALS: BP 100/52
[2018-05-07] MEDS: PANTOPRAZOLE SODIUM 40 MG TABLET.DR PO SCH (06:25)
[2018-05-07] MEDS: BLOOD SUGAR DIAGNOSTIC 1 EACH STRIP VI SCH ×4 (06:30→22:07)
[2018-05-07 06:41] LABS: BASOPHILS % (AUTO) 0.2 % (0.0-2.0); EOSINOPHILS # (AUTO) 0.2 K/uL (0.0-0.7); HEMATOCRIT 27.4 % (36.7-47.1); HEMOGLOBIN 9.5 g/dL (12.5-16.3); LYMPHOCYTES # (AUTO) 1.6 K/uL (20.0-40.0); LYMPHOCYTES % (AUTO) 9.3 % (20.5-51.5); MEAN CORPUSCULAR HEMOGLOBIN 33.5 uug (23.8-33.4); MEAN CORPUSCULAR HGB CONC 35 g/dL (32.5-36.3); MEAN CORPUSCULAR VOLUME 96.6 fL (73.0-96.2); MONOCYTES % (AUTO) 11.5 % (0.0-11.0); NEUTROPHILS # (AUTO) 13.4 K/uL (1.8-8.9); PLATELET COUNT (AUTO) 335 K/uL (152-348); RED BLOOD CELL COUNT(AUTO) 2.83 MIL/uL (4.06-5.63); WHITE BLOOD COUNT (AUTO) 17.2 K/uL (3.6-10.2)
[2018-05-07 06:54] LABS: CARBON DIOXIDE 28 mmol/L (21-32); CHLORIDE 102 mmol/L (98-107); CREATININE 1.3 mg/dL (0.6-1.3); GLUCOSE 111 mg/dL (74-106); MAGNESIUM 1.5 mg/dL (1.8-2.4); POTASSIUM 4.5 mmol/L (3.5-5.1); UREA NITROGEN, BLOOD 29 mg/dL (7-18)
[2018-05-07] MEDS: GLUCERNA SHAKE VANILLA 237 ML CAN PO SCH ×2 (08:00→17:00)
[2018-05-07] MEDS: ASPIRIN 81 MG TAB.CHEW PO SCH (08:41)
[2018-05-07] MEDS: POTASSIUM CHLORIDE 20 MEQ TAB.PRT.SR PO SCH ×2 (08:41→22:07)
[2018-05-07] MEDS: METFORMIN HCL 500 MG TABLET PO SCH ×2 (08:41→17:10)
[2018-05-07] MEDS: DILTIAZEM HCL CD 240 MG CAP.SR.24H PO SCH ×2 (08:45→21:00)
[2018-05-07] MEDS: CANDESARTAN PO SCH ×2 (08:46→22:08)
[2018-05-07] MEDS: HYDROCHLOROTHIAZIDE PO SCH ×2 (08:46→22:08)
[2018-05-07] MEDS: ALOGLIPTIN 25 MG PO SCH (08:46)
[2018-05-07 09:14] LABS: EOSINOPHILS % (MANUAL) 1 % (0-8); LYMPHOCYTES % (MANUAL) 10 % (20-40); MONOCYTES % (MANUAL) 11 % (2-10); NEUTROPHILS % (MANUAL) 78 % (42-75)
[2018-05-07 10:43] VITALS: BP 92/48
[2018-05-07] MEDS ORDERED: IV NORMAL SALINE 500 ML IV ONE (14:00)
[2018-05-07] MEDS ORDERED: MAGNESIUM OXIDE 400 MG TABLET PO ONE (15:45)
[2018-05-07] MEDS: RIVAROXABAN 10 MG TABLET PO SCH (17:16)
[2018-05-07 19:26] VITALS: BP 116/39
[2018-05-07] MEDS: ATORVASTATIN 10 MG TABLET PO SCH (22:07)
[2018-05-07] MEDS: TAMSULOSIN HCL 0.4 MG CAP.SR.24H PO SCH (22:07)
[2018-05-07] MEDS: DOCUSATE SODIUM 100 MG CAPSULE PO SCH (22:07)
[2018-05-07] MEDS: INSULIN REGULAR, HUMAN 300 UNIT/3 ML VIAL SQ PRN (22:15)
[2018-05-08 04:30] VITALS: BP 120/68
[2018-05-08] MEDS: PANTOPRAZOLE SODIUM 40 MG TABLET.DR PO SCH (06:21)
[2018-05-08] MEDS: BLOOD SUGAR DIAGNOSTIC 1 EACH STRIP VI SCH ×4 (06:37→20:46)
[2018-05-08 07:00] VITALS: BP 123/64
[2018-05-08] MEDS: GLUCERNA SHAKE VANILLA 237 ML CAN PO SCH (08:28)
[2018-05-08] MEDS: METFORMIN HCL 500 MG TABLET PO SCH ×2 (08:28→17:14)
[2018-05-08] MEDS: DILTIAZEM HCL CD 240 MG CAP.SR.24H PO SCH ×2 (08:29→20:50)
[2018-05-08] MEDS: POTASSIUM CHLORIDE 20 MEQ TAB.PRT.SR PO SCH ×2 (08:29→20:40)
[2018-05-08] MEDS: ASPIRIN 81 MG TAB.CHEW PO SCH (08:29)
[2018-05-08] MEDS: CANDESARTAN PO SCH ×2 (08:31→20:40)
[2018-05-08] MEDS: HYDROCHLOROTHIAZIDE PO SCH ×2 (08:31→20:40)
[2018-05-08] MEDS: ALOGLIPTIN 25 MG PO SCH (08:31)
[2018-05-08] MEDS: INSULIN REGULAR, HUMAN 300 UNIT/3 ML VIAL SQ PRN ×2 (11:54→20:49)
[2018-05-08 16:00] VITALS: BP 95/49
[2018-05-08] MEDS: RIVAROXABAN 10 MG TABLET PO SCH (17:15)
[2018-05-08 19:42] VITALS: BP 105/52
[2018-05-08] MEDS: ATORVASTATIN 10 MG TABLET PO SCH (20:40)
[2018-05-08] MEDS: TAMSULOSIN HCL 0.4 MG CAP.SR.24H PO SCH (20:40)
[2018-05-08] MEDS: DOCUSATE SODIUM 100 MG CAPSULE PO SCH (20:40)
[2018-05-08] MEDS: TEMAZEPAM 15 MG CAPSULE PO PRN (23:38)
[2018-05-09 04:30] VITALS: BP 125/61
[2018-05-09] MEDS: PANTOPRAZOLE SODIUM 40 MG TABLET.DR PO SCH (06:27)
[2018-05-09] MEDS: BLOOD SUGAR DIAGNOSTIC 1 EACH STRIP VI SCH ×4 (06:27→20:48)
[2018-05-09 06:34] LABS: BASOPHILS # (AUTO) 0.1 K/uL (0.0-8.0); BASOPHILS % (AUTO) 0.4 % (0.0-2.0); EOSINOPHILS # (AUTO) 0.3 K/uL (0.0-0.7); HEMATOCRIT 27.1 % (36.7-47.1); HEMOGLOBIN 9.5 g/dL (12.5-16.3); LYMPHOCYTES # (AUTO) 1.1 K/uL (20.0-40.0); LYMPHOCYTES % (AUTO) 7.6 % (20.5-51.5); MEAN CORPUSCULAR HEMOGLOBIN 34.5 uug (23.8-33.4); MEAN CORPUSCULAR HGB CONC 35 g/dL (32.5-36.3); MEAN CORPUSCULAR VOLUME 98.2 fL (73.0-96.2); MONOCYTES # (AUTO) 2.4 K/uL (2.0-10.0); MONOCYTES % (AUTO) 16.4 % (0.0-11.0); NEUTROPHILS # (AUTO) 10.6 K/uL (1.8-8.9); NEUTROPHILS % (AUTO) 73.6 % (38.5-71.5); PLATELET COUNT (AUTO) 257 K/uL (152-348); RED BLOOD CELL COUNT(AUTO) 2.76 MIL/uL (4.06-5.63); WHITE BLOOD COUNT (AUTO) 14.4 K/uL (3.6-10.2)
[2018-05-09 06:51] LABS: CARBON DIOXIDE 30 mmol/L (21-32); CHLORIDE 101 mmol/L (98-107); CREATININE 1.3 mg/dL (0.6-1.3); GLUCOSE 104 mg/dL (74-106); MAGNESIUM 1.6 mg/dL (1.8-2.4); PHOSPHOROUS 3.3 mg/dL (2.5-4.9); POTASSIUM 4.4 mmol/L (3.5-5.1); UREA NITROGEN, BLOOD 25 mg/dL (7-18)
[2018-05-09 07:36] LABS: EOSINOPHILS % (MANUAL) 1 % (0-8); LYMPHOCYTES % (MANUAL) 8 % (20-40); MONOCYTES % (MANUAL) 12 % (2-10); NEUTROPHILS % (MANUAL) 79 % (42-75)
[2018-05-09 08:00] VITALS: BP 99/55
[2018-05-09] MEDS: ASCORBIC ACID 500 MG TABLET PO SCH (08:44)
[2018-05-09] MEDS: ZINC SULFATE 220 MG CAPSULE PO SCH (08:44)
[2018-05-09] MEDS: POTASSIUM CHLORIDE 20 MEQ TAB.PRT.SR PO SCH ×2 (08:44→20:39)
[2018-05-09] MEDS: METFORMIN HCL 500 MG TABLET PO SCH ×2 (08:44→17:27)
[2018-05-09] MEDS: ASPIRIN 81 MG TAB.CHEW PO SCH (08:44)
[2018-05-09] MEDS: DILTIAZEM HCL CD 240 MG CAP.SR.24H PO SCH ×2 (08:45→20:41)
[2018-05-09] MEDS: ALOGLIPTIN 25 MG PO SCH (08:45)
[2018-05-09] MEDS: HYDROCHLOROTHIAZIDE PO SCH ×2 (08:46→20:40)
[2018-05-09] MEDS: CANDESARTAN PO SCH ×2 (08:46→20:40)
[2018-05-09] MEDS ORDERED: IV NS 1000 ML 1,000 ML IV ONE (11:45)
[2018-05-09] MEDS ORDERED: MAGNESIUM OXIDE 400 MG TABLET PO ONE (14:00)
[2018-05-09 17:21] VITALS: BP 108/53
[2018-05-09] MEDS: RIVAROXABAN 10 MG TABLET PO SCH (17:29)
[2018-05-09] MEDS: TAMSULOSIN HCL 0.4 MG CAP.SR.24H PO SCH (20:39)
[2018-05-09] MEDS: ATORVASTATIN 10 MG TABLET PO SCH (20:39)
[2018-05-09] MEDS: DOCUSATE SODIUM 100 MG CAPSULE PO SCH (20:39)
[2018-05-09 21:25] VITALS: BP 104/47
[2018-05-10 04:15] VITALS: BP 109/48
[2018-05-10] MEDS: BLOOD SUGAR DIAGNOSTIC 1 EACH STRIP VI SCH ×2 (06:18→11:30)
[2018-05-10] MEDS: PANTOPRAZOLE SODIUM 40 MG TABLET.DR PO SCH (06:19)
[2018-05-10 07:00] VITALS: BP 113/52
[2018-05-10] MEDS: ZINC SULFATE 220 MG CAPSULE PO SCH (08:34)
[2018-05-10] MEDS: ASPIRIN 81 MG TAB.CHEW PO SCH (08:34)
[2018-05-10] MEDS: POTASSIUM CHLORIDE 20 MEQ TAB.PRT.SR PO SCH (08:34)
[2018-05-10] MEDS: ASCORBIC ACID 500 MG TABLET PO SCH (08:34)
[2018-05-10] MEDS: METFORMIN HCL 500 MG TABLET PO SCH (08:34)
[2018-05-10] MEDS: ALOGLIPTIN 25 MG PO SCH (08:35)
[2018-05-10 08:36] VITALS: BP 113/52
[2018-05-10] MEDS: DILTIAZEM HCL CD 240 MG CAP.SR.24H PO SCH (08:36)
[2018-05-10] MEDS: CANDESARTAN PO SCH (08:39)
[2018-05-10] MEDS: HYDROCHLOROTHIAZIDE PO SCH (08:39)
== END 2018-05-10 14:30 | disposition home health service (06) | DRG 559 ==
PROVIDERS: ADMIT Physical Medicine & Rehabilitation Pain Medicine; ATTEND Physical Medicine & Rehabilitation Pain Medicine
DX: Z47.1 Aftercare following joint replacement surgery (principal); N17.0 Acute kidney failure with tubular necrosis; E43 Unspecified severe protein-calorie malnutrition; Z96.642 Presence of left artificial hip joint; D63.8 Anemia in other chronic diseases classified elsewhere; E11.9 Type 2 diabetes mellitus without complications; E78.5 Hyperlipidemia, unspecified; I10 Essential (primary) hypertension; I25.10 Atherosclerotic heart disease of native coronary artery without angina pectoris; K21.9 Gastro-esophageal reflux disease without esophagitis; Z91.81 History of falling; Z95.1 Presence of aortocoronary bypass graft; E03.9 Hypothyroidism, unspecified; E83.42 Hypomagnesemia; F32.9 Major depressive disorder, single episode, unspecified; G47.00 Insomnia, unspecified; I95.1 Orthostatic hypotension; J44.9 Chronic obstructive pulmonary disease, unspecified; M16.11 Unilateral primary osteoarthritis, right hip; N32.81 Overactive bladder; R31.9 Hematuria, unspecified; D72.829 Elevated white blood cell count, unspecified; T38.0X5A Adverse effect of glucocorticoids and synthetic analogues, initial encounter; Y92.89 Other specified places as the place of occurrence of the external cause
CPT/HCPCS: 36415; 71045; 73502; 83735; 84100; 85025; 87040; 87086; 97110; 97112; 97116; 97165; 97530; 97535; A4663; J1815; J3475; J7030; J7040; J7512